=== PATIENT | female | born 1935 | race Caucasian/White ===

== ENCOUNTER 2016-06-01 11:42 | Inpatient (IN) | payer MEDICARE, BC ==
[~2016-06-01] VITALS: Ht 172.7 cm; Wt 71.3 kg
--- NOTE | ~2016-06-01 | ER ---
PATIENT'S NAME: ANTONINO DARLING [facility] AGE: 80 Y [address] ROOM: [address] [address] LOCATION: GPCU ADMIT DATE: 06/01/2016 ER/Outpatient Report DISCHARGE DATE: FAMILY PHYSICIAN: Elena Mchugh MD ATTENDING PHYSICIAN: XI CESAR CHIEF COMPLAINT: Nausea, vomiting, diarrhea. HISTORY OF PRESENT ILLNESS: The patient lives at home but has not been feeling well over the last few days. She was brought in by family for further evaluation and treatment of that issue. She states she got her usual immunizations this year, who has been having some pressure in her chest. The family notes that she has been under significant stress lately trying to care for her as he has been ill. The patient has had some diarrhea and vomiting over the last few days. She is generally weak. She rates her pain at 7/10. Nothing has really helped her. She denies any shortness of breath or extremity swelling. ALLERGIES: NO KNOWN MEDICAL ALLERGIES. MEDICATIONS: Please see list. PAST MEDICAL HISTORY: Includes hypertension, atrial fibrillation, arthritis. SURGERIES: Include cardiac stents, , and hysterectomy. SOCIAL HISTORY: The patient drinks alcohol occasionally. REVIEW OF SYSTEMS: All systems were reviewed and negative except as noted in the HPI. PHYSICAL EXAMINATION: VITAL SIGNS: Blood pressure is 183/84, pulse is 76, respiratory rate is 24, temperature is 101.2, SpO2 is 83% on room air. NEURO: The patient is awake and alert. GCS is 15. No focal deficits. No asymmetry on exam. HEENT: Normocephalic, atraumatic. The eyes are PERRL. The oropharynx is clear. NECK: Supple. Trachea is midline. PATIENT'S NAME: ANTONINO DARLING [facility] AGE: 80 Y [address] ROOM: [address] [address] LOCATION: GPCU ADMIT DATE: 06/01/2016 ER/Outpatient Report DISCHARGE DATE: FAMILY PHYSICIAN: Elena Mchugh MD ATTENDING PHYSICIAN: XI CESAR CHEST: Heart is regular rate and rhythm with no obvious murmurs. LUNGS: With coarse breath sounds bilateral, most prominent at the bases, left greater than right. The patient is tachypneic. ABDOMEN: Soft, nontender, and nondistended. No rebound or guarding. BACK: Nontender to palpation throughout. EXTREMITIES: Warm and well perfused. No peripheral edema. SKIN: Warm, dry, and intact. LABORATORY DATA AND X-RAYS: Chest x-ray, concerning for left lower lobe pneumonia. No clear cephalization of vessels. Blood cultures were obtained and are pending. EKG is sinus rhythm, rate of 75 with normal intervals and left axis. No significant changes other than upright T-waves in the lateral leads as compared to prior EKG from 02/12/2016. D-dimer is 2.96. CMS is notable for potassium of 3.1 with normal renal function and normal LFTs. Troponin I is below threshold. CRP is 2.15. ProBNP is 2006. WBC is 11.6, hemoglobin 13.8, platelets are 224. INR is 1.05. Urinalysis with no leukocytes, no nitrites, no bacteria. Procalcitonin 6.86. Chest CT/PE protocol notable for left lower lobe and probable right lower lobe pneumonia. No evidence of pulmonary edema or PE. IMPRESSION: 1. Severe community-acquired pneumonia with hypoxia. 2. Chest pain. 3. Sepsis secondary to pneumonia. 4. Pulmonary embolism. EMERGENCY DEPARTMENT COURSE: The patient was seen and evaluated as above. Differential includes acute coronary syndrome, PE, pneumothorax, pneumonia, and dissection. Labs were obtained including cultures, and the patient was febrile. Physical exam is more consistent with heart failure. The patient was markedly hypoxic and required 15 L non-rebreather to maintain adequate oxygen saturations. She would make it to 87% on 6 L by simple facemask. BiPAP was initiated for awhile with no real improvement subjectively or objectively. She was re- transitioned back down to the non-rebreather. She was most comfortable with that modality. She had no subjective shortness of breath associated with this. No evidence of cardiac ischemia. Empiric antibiotics were started with Rocephin and azithromycin as I can not find criteria for healthcare-associated pneumonia. IMPRESSION: The patient will be admitted to the PCU under the care of Dr. Cesar for further evaluation and treatment of her severe pneumonia with hypoxia. CRITICAL CARE: PATIENT'S NAME: ANTONINO DARLING [facility] AGE: 80 Y [address] ROOM: [id number] [place], [place] [address] [facility] ADMIT DATE: 06/01/2016 ER/Outpatient Report DISCHARGE DATE: FAMILY PHYSICIAN: Elean Mchugh MD ATTENDING PHYSICIAN: XI CESAR 35 minutes of critical care time was spent on this patient. Care is warranted for severe hypoxia. Critical care consisted of patient assessment, ordering and initiating testing for sepsis including pneumonia as well as evaluation of EKG and chest x-ray, ordering chest CT, initiating antibiotics and treating her hypoxia with BiPAP and high-flow oxygen. The patient remained otherwise stable and was admitted without further issues to the floor. MD JADEN ESPINOZA/caml /[id number] d: 06/02/16 0014 t: 06/03/16 2223, OUTPATIENT REPORT
--- NOTE | ~2016-06-01 | HP ---
PATIENT'S NAME: ANTONINO DARLING [facility] AGE: 80 Y [address] ROOM: [id number] [place], [place] [address] [facility] AD[facility] DATE: 06/01/2016 History & Physical DISCHARGE DATE: FAMILY PHYSICIAN: Elena Mchugh MD ATTENDING PHYSICIAN: XI CESAR DATE OF SERVICE: CHIEF COMPLAINT: Vomiting and diarrhea and cough. HISTORY OF PRESENT ILLNESS: This is a 80-year-old female who was brought into the ER by family, daughter, after the patient called her, reported that she was not feeling good and that she needed to go and see a doctor. History was obtained from the patient. She reported that last night that she had a few bars of caramel candy and thereafter she started coughing and she started throwing up. She reports that she threw up about 3 times, her symptoms began at around 10 p.m. last night after she ate the caramel candy bars. She also noted that around the same time that she developed some lower quadrant abdominal pain which she rated at 9/10, sharp, nonradiating pain, and she also notes that she had 2 episodes of soft stool, one last night and one this morning and none since she has been in the ER. However, family reports that sometimes in the first week of May that she had some flu-like symptoms with sore throat and also one of her sons who had the same symptoms, but they reported that since then she has been weak and tired and they felt probably maybe it was secondary to her arthritis. She denies chest pain, however, she notes pain on the right side of her rib. She denies urinary symptoms. She denies headache. She has chronic lower back pain. REVIEW OF SYSTEMS: The 13 elements of review of systems were asked and as documented in the HPI. The others are negative. PAST MEDICAL HISTORY: Includes hypertension; CAD, status post stent in 2011; rheumatoid arthritis; hypothyroidism; GERD; dyslipidemia; paroxysmal atrial fibrillation, on long- term anticoagulation; and also hypothyroidism. SOCIAL HISTORY: She is a former smoker, stopped several years ago. No use of alcohol. No use of drugs. FAMILY HISTORY: Mother with kidney cancer, father did not have any family history of heart [facility]: [facility]: 80 Y [address] ROOM: [facility] [place], [place] [address] [facility] AD[facility] DATE: 06/01/2016 History & Physical DISCHARGE DATE: FAMILY PHYSICIAN: Elena Mchugh MD ATTENDING PHYSICIAN: XI CESAR disease or cancer. PAST SURGICAL HISTORY: Includes cataract surgery, section, detached retinal repair, appendectomy, hysterectomy with bilateral salpingo-oophorectomy, and total knee replacement on the left. PHYSICAL EXAMINATION: VITAL SIGNS: In PCU, temperature 100.6, pulse 76, respiratory rate 38, blood pressure 175/74, and oxygen saturation 98% on 15 L of oxygen with nonrebreather. GENERAL: An elderly female who is a little bit weak and drowsy, in mild respiratory distress though she is on a nonrebreather; however, she is still tachypneic. She is alert, awake, and oriented x3. NEUROLOGICAL: Cranial nerves 2-12 are intact bilaterally. Sensory is intact bilaterally. Power is at least 4 in both upper and lower extremities. CARDIOVASCULAR SYSTEM: Normal S1, S2. Regular rate. CHEST: Bilateral basal rales, worse on the left. ABDOMEN: Soft, nondistended. No area of tenderness. No palpable organomegaly. Positive bowel sounds. EXTREMITIES: There is no joint swelling or erythema or tenderness. SKIN: No rashes or skin breakdown. LABORATORY DATA: Troponin less than 0.040. ProBNP 2006. WBC 11.6, H and H 13.8/41.7, and platelets 224. Sodium 140, creatinine 0.8, BUN 11, glucose 132, potassium 3.1, chloride 104, CO2 29, and calcium 8.2. Liver function tests within normal limits. INR 1.05. UA: Leukocytes negative, nitrite negative, wbc rare, bacteria negative. Procalcitonin 6.86. D-dimer 2.96. Absolute neutrophil count 10. CRP 2.15. Microbiology: Urine pending. Blood culture x2 sets, pending. Radiology: CTA per PE protocol: No PE; extensive consolidating left lower lobe pneumonia involving the entire lobe; small patchy infiltrate at the posterior right lung base, may also reflect pneumonia. ASSESSMENT AND PLAN: This is a 80-year-old female with acute hypoxic respiratory failure. 1. Acute hypoxic respiratory failure, present on admission. The patient was on BiPAP briefly, however, she is right now on nonrebreather at 15 L of oxygen. She is saturating 98%, but does still tachypneic. Given the extent of her bilateral lobe pneumonia, left greater than the right, she is at risk at developing ARDS. We will keep a close eye on this. We will get an ABG, and we will manage accordingly. Probably, she may need to be on CPAP or BiPAP depending on what the ABG results turns out to be. PATIENT'S NAME: ANTONINO DARLING [facility] AGE: 80 Y [address] ROOM: [id number] [place] [id number] [facility] AD[facility] DATE: 06/01/2016 History & Physical DISCHARGE DATE: FAMILY PHYSICIAN: Elena Mchugh MD ATTENDING PHYSICIAN: XI CESAR 2. Bilateral lobe basal pneumonia, worse on the left than the right, extensive, present on admission. We will manage the patient as per the pneumonia order set. She got Rocephin and azithromycin down in the ER. I will rather switch her to Zosyn and Levaquin given the extent of the pneumonia. We will also do urine for Legionella antigen and urine for streptococcal antigen. We will push for aggressive pulmonary toileting. The patient is at risk of developing ARDS. 3. Essential hypertension, is stable, controlled. We will continue the patient on her medication. 4. Sepsis, present on admission, secondary to bilateral lobe pneumonia. We will continue the patient on antibiotics. 5. Hypokalemia. We will replete, and we will check the patient's magnesium level as well. 6. Paroxysmal atrial fibrillation, rate controlled. Continue the patient on her medication. 7. Hypothyroidism, present on admission. We will continue the patient on her medication. 8. Gastroesophageal reflux disease, present on admission. We will put the patient on some Protonix now, as we are going to keep her n.p.o. until we will get Speech and Swallow evaluation in the morning. The line of management was explained to the patient and 2 daughters who are present at bedside and I did tell them that the patient is at risk of going into worsening respiratory failure which may need CPAP or BiPAP and if that fails, then she may require intubation and they expressed understanding about this. MD ARABELLA GARZA/hao /[id number] D: [id number] T: [id number] HISTORY & PHYSICAL
--- NOTE | ~2016-06-01 | DS ---
PATIENT'S NAME: ANTONINO DARLING [facility] AGE: 80 Y [address] ROOM: [address] [place], [place] [address] LOCATION: GPCU ADMIT DATE: 06/01/2016 Discharge Summary DISCHARGE DATE: 06/10/2016 FAMILY PHYSICIAN: Elena Mchugh MD ATTENDING PHYSICIAN: Armond Salcedo ADMITTING DIAGNOSES: 1. Acute hypoxic respiratory failure, improving. 2. Community-acquired pneumonia, improving. 3. Diastolic congestive heart failure, decompensated, currently improving. 4. Oral thrush, on nystatin. 5. Paroxysmal atrial fibrillation. 6. Rheumatoid arthritis. 7. Hypertension. 8. Physical deconditioning. HISTORY OF PRESENT ILLNESS: Please see admitting HPI. HOSPITAL COURSE: The patient was admitted to our hospital. Initial chest x- ray shows bilateral infiltrate. The patient was initially started on Rocephin and ceftriaxone in the emergency department. The patient's antibiotic was switched to Levaquin and Zosyn. Sputum cultures showed pansensitive MRSA. Blood cultures did not grow any bacteria. During her stay, the patient continued to have productive cough with mild tinged sputum. CT angiogram was done to evaluate. CTPA did not show any PE. The patient also was noted to be in decompensated heart failure, diastolic in nature. She was started on diuretics with adequate improvement of symptoms. The patient's antibiotic was changed to oral Levaquin and clindamycin. As such, sputum culture showed MSSA, pansensitive. The patient was continued on Levaquin. The patient's symptoms improved adequately during stay. The patient was also seen by Physical Therapy and Occupational Therapy. On the day of discharge, the patient was evaluated for oxygen need. The patient was noted to require 3 L of oxygen on rest and 4 L on ambulating. [id number] was done with the patient on oxygen need. I discussed about her oxygen need with the patient. The patient discharged in stable condition to follow up her with her primary care physician with Levaquin for five more days and oral nystatin for her oral thrush. The patient to have repeat chest x-ray in six weeks and repeat CBC on Thursday. CONDITION: Stable. DISPOSITION: Home with home health with PT, OT, and fdc. DISCHARGE MEDICATIONS: Please see MAR. PATIENT'S NAME: ANTONINO DARLING [facility] AGE: 80 Y [address] ROOM: [facility] [place] [address] [facility] AD[facility] DATE: 06/01/2016 Discharge Summary DISCHARGE DATE: 06/10/2016 FAMILY PHYSICIAN: Elena Mchugh MD ATTENDING PHYSICIAN: Armond aSlcedo FOLLOWUP: The patient to follow up with PCP with repeat CBC and chest x-ray in six weeks to show resolvement of pneumonia. Greater than 30 minutes was spent on discharge planning. MD JUANY BARNARD/hao /[id number] d: 06/11/16 0153 t: 06/15/16 1610, DISCHARGE SUMMARY
[~2016-06-01 11:42] MED LIST: ALTACE10 MG PO; ANTIVERT **IA12.5 MG PO; ASPIRIN EC81 MG PO; BETAPACE (GENER80 MG PO; CALCIUM 600 +1 EAC9 PO; CIPRO500 MG PO; COLACE100 MG PO; DELTASONE5 MG PO; FISH OIL 1,2001 EACH PO; LEVOTHROID (S125 MCG PO; LOPRESSOR25 MG PO; LOSARTAN-HCTZ1 EACH PO; MELOXICAM7.5 MG PO; MIRALAX17 GM PO; NORCO 10-325 T1 EACH PO; NORCO 5-325 MG1 TAB PO; PLAQUENIL200 MG PO; POTASSIUM99 M1 PO; VALIUM5 MG PO; VITAMIN C500 MG PO; VITAMIN D-40400 UNIT PO; VITAMIN E400 UNI2 PO; XARELTO10 MG PO; XARELTO20 MG PO; ZOCOR20 MG PO
[2016-06-01 12:18] LABS: HEMATOCRIT 41.7 % (33.0-46.0); HEMOGLOBIN 13.8 g/dL (10.0-15.0); MCHC 33.1 gm/dL (32.0-36.5); MCV 99.8 fl (83.0-98.0); MPV 9.8 fl (9.4-12.4); PLATELET COUNT 224 K/uL (150-450); RBC 4.18 M/uL (3.50-5.50); RDW-CV 12.4 % (11.9-14.6); WBC 11.6 K/uL (4.0-11.0)
[2016-06-01 12:26] LABS: INR - (THERAPEUTIC) 1.05 (0.92-1.07); PTT 29 SECONDS (25-32)
[2016-06-01 12:41] LABS: ALBUMIN 3.7 gm/dL (3.5-5.0); ALK PHOS 69 IU/L (33-138); ALT 32 IU/L (12-78); ANION GAP 10.1 (10.0-19.0); AST 31 IU/L (10-40); BLOOD UREA NITROGEN 11 mg/dL (6-24); CALCIUM 8.2 mg/dL (8.5-10.5); CHLORIDE 104 mMol/L (96-110); CO2 29 mMol/L (22-32); CREATININE 0.8 mg/dL (0.5-1.1); ESTIMATED GFR (MDRD EQUATION) > 60; POTASSIUM 3.1 mMol/L (3.7-5.1); SODIUM 140 mMol/L (135-145); TOTAL BILIRUBIN 1.5 mg/dL (0.0-1.5); TOTAL PROTEIN 6.3 g/dL (6.0-8.4)
[2016-06-01 13:01] LABS: BANDED NEUTROPHIL # 4.3 K/uL (0.0-0.1); BANDED NEUTROPHILS % 37 %; LYMPHOCYTE % 9 %; MONOCYTE # 0.5 K/uL (0.0-1.0); SEGMENTED NEUTROPHIL # 5.7 K/uL (1.8-7.8); SEGMENTED NEUTROPHIL % 49 %
[2016-06-01 13:14] LABS: BILIRUBIN URINE NEGATIVE (NEGATIVE); BLOOD URINE 50 /UL (NEGATIVE); COLOR URINE STRAW (YELLOW); GLUCOSE URINE NEGATIVE (NEGATIVE); KETONE URINE NEGATIVE (NEGATIVE); LEUKOCYTES URINE NEGATIVE /UL (NEGATIVE); NITRITE URINE NEGATIVE (NEGATIVE); PROTEIN URINE 15 mg/dL (NEGATIVE); SPEC GRAVITY URINE 1.005 (1.003-1.035); TURBIDITY URINE CLEAR (CLEAR); UROBILINOGEN URINE NORMAL (NORMAL)
[2016-06-01 13:23] LABS: BACTERIA URINE NEGATIVE (NEGATIVE); EPITHELIAL URINE RARE #/HPF (NEGATIVE); WBC URINE RARE #/HPF (NEGATIVE)
[2016-06-01 16:40] LABS: LACTATE 2.1 mEq/L (0.50-1.60); PCO2 38 mmHg (35-45); PO2 57 mmHg (80-90)
--- NOTE | 2016-06-01 19:44 | NUR ---
Significant Event: Alert & oriented but very drowsy. SBP 150-170, Temp 100.6, weaned to NC but resp rate 30-40 so started BiPAP. 2 post-tussive emesis of yellow-green with small amount of blood. Complaint of "chest pain" to left ribs and LUQ rates 3/10. NPO for now, speech eval Thursday. Giving IV Potassium & Magnesium & several Abx.
--- NOTE | 2016-06-02 04:51 | NUR ---
Significant Event: A&Ox3, VSS on BiPAP @ 50% FiO2. HTN at times, SBP: 160s-120s. Course lung sounds. Max temp 101.4 tympanic. extra tylenol dose given per MD order. Repositions self frequently in bed. INC of urine. UA needed, may need to straight cath. Sputum sample needed. Vomits when she tries to cough up sputum. Blood tinged frothy sputum/vomit. IV ABX into right AC areas in PIVs X2. [place] to [facility] [place], walker/GB. Loose BM, C-dif negative. Complains of pain in lower back. Ultram given X1 with some relief. Family at bedside and extremely active in care. Encouraged to let patient rest. Follow up: UA, sputum culture, contiue with plan of care.
[2016-06-02 05:07] LABS: HEMATOCRIT 35.8 % (33.0-46.0); HEMOGLOBIN 11.5 g/dL (10.0-15.0); MCH 32.2 pg (27.0-34.0); MCHC 32.1 gm/dL (32.0-36.5); MCV 100.3 fl (83.0-98.0); MPV 10.2 fl (9.4-12.4); PLATELET COUNT 180 K/uL (150-450); RBC 3.57 M/uL (3.50-5.50); RDW-CV 12.8 % (11.9-14.6); WBC 14.8 K/uL (4.0-11.0)
[2016-06-02 05:50] LABS: ABSOLUTE NEUTROPHIL CT (ANC) 12.7 K/uL (1.8-7.8); BANDED NEUTROPHIL # 4.7 K/uL (0.0-0.1); BANDED NEUTROPHILS % 32 %; LYMPHOCYTE % 7 %; SEGMENTED NEUTROPHIL % 54 %
[2016-06-02 12:50] LABS: CHLORIDE 109 mMol/L (96-110); CO2 25 mMol/L (22-32); CREATININE 0.8 mg/dL (0.5-1.1); ESTIMATED GFR (MDRD EQUATION) > 60; SODIUM 141 mMol/L (135-145)
[2016-06-02 12:55] LABS: BLOOD UREA NITROGEN 19 mg/dL (6-24); CALCIUM 7.4 mg/dL (8.5-10.5)
--- NOTE | 2016-06-02 19:40 | NUR ---
Significant Event: A/O x3, cooperative with cares. VSS, afebrile, SBPs 100-120s, HRs 60-80s, oxygen currently at 2 liters; was on bipap most of shift. 1 tab of [place] given x2, last at 1457, for c/o back pain; relief noted. Up with assist of 1 to BSC. Sputum specimen collected et sent to lab. Bedside swallow eval completed by speech therapy after bipap off. Follow up:
--- NOTE | 2016-06-03 03:53 | NUR ---
Significant Event:PT AAOX3.VERY PLEASANT WITH STAFF AND CARES. UP WITH 1 ASSIST GB CANE. DOES WELL WITH TRANSFERS. CONT OF BOWEL AND BLADDER.LUNG SOUND SLIGHTLY COARSE AT TIMES. CONTINUES TO HAVE HARSH PRODUCTIVE COUGH WITH BROWN BLOODY SPUTUM. 2L NC DURING EVENING. DID WEAR BIPAP AT 30%02 AT NIGHT. AFEBRILE. 2 IVS TO RIGHT AC. NACL RUNNING AT 100ML/HR. PT RESTED WELL DURING NIGHT. PRN NORCO AT HS FOR BACK PAIN. Follow up:
[2016-06-03 03:54] LABS: HEMATOCRIT 32.4 % (33.0-46.0); HEMOGLOBIN 10.4 g/dL (10.0-15.0); MCH 32.8 pg (27.0-34.0); MCHC 32.1 gm/dL (32.0-36.5); MCV 102.2 fl (83.0-98.0); MPV 10.5 fl (9.4-12.4); PLATELET COUNT 146 K/uL (150-450); RBC 3.17 M/uL (3.50-5.50); RDW-CV 12.8 % (11.9-14.6); WBC 12.2 K/uL (4.0-11.0)
[2016-06-03 04:09] LABS: BLOOD UREA NITROGEN 19 mg/dL (6-24); CALCIUM 7.7 mg/dL (8.5-10.5); CHLORIDE 106 mMol/L (96-110); CO2 24 mMol/L (22-32); CREATININE 0.6 mg/dL (0.5-1.1); ESTIMATED GFR (MDRD EQUATION) > 60; SODIUM 137 mMol/L (135-145)
[2016-06-03 05:16] LABS: ABSOLUTE NEUTROPHIL CT (ANC) 10.9 K/uL (1.8-7.8); BANDED NEUTROPHIL # 5.4 K/uL (0.0-0.1); BANDED NEUTROPHILS % 44 %; LYMPHOCYTE # 0.4 K/uL (0.8-4.0); LYMPHOCYTE % 3 %; MONOCYTE # 0.6 K/uL (0.0-1.0); SEGMENTED NEUTROPHIL # 5.5 K/uL (1.8-7.8); SEGMENTED NEUTROPHIL % 45 %
--- NOTE | 2016-06-03 14:08 | NUR ---
Introduced self and role of care management to pt along with her youngest daughter. Pt lives in [place] with her Allen who is in [facility] getting restorative therapy from numerous hospital admissions. She states she is feeling some better. I did discuss a little regarding dc plans and she is hoping for home and I did mention hhc or a skilled stay if she would qualify. She stated her has [facility] and that would be good on discharge and will see how she does the next few days. Pt did state she has 2 older sons that live with them but do work outside the home and the one gets back home around 3pm. She states he is a good cook and a granddaughter is also living with them and lately has been doing the laundry and cleaning. Pt states she does use a cane when up. They are hoping for home but explained I would check on her in the next day or 2 to make sure that is still the plan and will update Lucy with HHC.
--- NOTE | 2016-06-03 16:31 | NUR ---
I visited with the patient and her daughter about the hospitalist program and any discharge needs she will have. Their only concern was getting the discharge scripts a few hours befor she is dismissed. They would like to have them filled and smooth out any potential problems befor she gets home.
--- NOTE | 2016-06-03 16:47 | NUR ---
Significant Event: A/OX3, VSS ON ROOM AIR, KEEP SATS >90%. GAVE NORCO X2 LAST AT 1651 FOR COMPLAINTS OF GENERALIZED PAIN. PT. GETS UP 1 ASSIST TO BATHROOM, DID WALK IN HALLWAY TODAY WITH PHYSICAL THERAPY. FAMILY HERE TODAY. IV'S TO RIGHT AC & UPPER ARM ARE SALINE LOCKED. CONTINUES ON IV ABX'S. BIPAP D/C'D. LABS IN AM. POSSIBLE D/C TO HOME IN AM. UP IN CHAIR MOST OF THE DAY. PT. HAS A HARSH, MOIST COUGH WHICH HAS GOTTEN BETTER THROUGHOUT THE SHIFT, CONTINUES TO COUGH UP BLOOD TINGED SPUTUM AT TIMES. Follow up: CONTINUE WITH POC.
[2016-06-04 04:16] LABS: HEMATOCRIT 29.4 % (33.0-46.0); HEMOGLOBIN 9.7 g/dL (10.0-15.0); MCH 32.7 pg (27.0-34.0); MPV 10.9 fl (9.4-12.4); PLATELET COUNT 165 K/uL (150-450); RBC 2.97 M/uL (3.50-5.50); RDW-CV 12.3 % (11.9-14.6); WBC 13.1 K/uL (4.0-11.0)
[2016-06-04 04:29] LABS: ANION GAP 11.5 (10.0-19.0); BLOOD UREA NITROGEN 13 mg/dL (6-24); CALCIUM 7.9 mg/dL (8.5-10.5); CHLORIDE 110 mMol/L (96-110); CO2 25 mMol/L (22-32); CREATININE 0.5 mg/dL (0.5-1.1); ESTIMATED GFR (MDRD EQUATION) > 60; POTASSIUM 3.5 mMol/L (3.7-5.1); SODIUM 143 mMol/L (135-145)
[2016-06-04 05:20] LABS: ABSOLUTE NEUTROPHIL CT (ANC) 11.8 K/uL (1.8-7.8); BANDED NEUTROPHIL # 2.9 K/uL (0.0-0.1); BANDED NEUTROPHILS % 22 %; LYMPHOCYTE % 8 %; MONOCYTE # 0.3 K/uL (0.0-1.0); SEGMENTED NEUTROPHIL # 8.9 K/uL (1.8-7.8); SEGMENTED NEUTROPHIL % 68 %
--- NOTE | 2016-06-04 05:41 | NUR ---
Significant Event: PATIENT A/0 X 3, AMBULATES 1 ASSIST WITH WALKER/GAIT-BELT. LAST SPB HYPERTENSIVE AT 175, HR 60-80'S, ALL OTHER VSS ON 1L WHILE SLEEPING, AFEBRILE. STILL HAS PRODUCTIVE BLOOD-TINGED COUGH, LUNGS REMAIN SLIGHTLY COARSE/CRACKLES AT TIMES. 1 NORCO GIVEN AT 2145 WITH RELIEF NOTED. Follow up: POSSBILE DISCHARGE TODAY.
--- NOTE | 2016-06-04 17:46 | NUR ---
Significant Event: A/O X3. UP WITH 1 ASSIST, GB AND WALKER. PIV X2 TO RIGHT AC SL'D. C/O GENERALIZED PAIN, NORCO 1 TAB GIVEN X1. C/O INDIGESTION, TUMS 2 TABS GIVEN X1. UNABLE TO COMPLETELY WEAN O2, CURRENTLY ON 1L NC. LUNGS COARSE T/O. Follow up: NEED C.DIFF SAMPLE.
[2016-06-05 04:06] LABS: HEMATOCRIT 29.5 % (33.0-46.0); MCH 32.9 pg (27.0-34.0); MCHC 33.9 gm/dL (32.0-36.5); MPV 10.4 fl (9.4-12.4); RBC 3.04 M/uL (3.50-5.50); RDW-CV 12.5 % (11.9-14.6); WBC 13.3 K/uL (4.0-11.0)
[2016-06-05 04:08] LABS: PLATELET COUNT 208 K/uL (150-450)
--- NOTE | 2016-06-05 04:24 | NUR ---
Significant Event: Patient is alert and oriented x 3. Slightly forgetful. VSS on 2L of O2. HRs in the 60s. Hypertensive. SBPs in the 150s-170s. Max temp of 99.4. Up with 1 assist, walker, and gait belt. Lung sounds coarse/crackles throughout. Productive cough, blood-tinged sputum. BM x 1 this shift. Voiding well. Two right AC IVs, saline locked. [place] given for pain last at 233 and Tramadol given at 2109. Patient is pleasant and cooperative with cares. Follow up:
[2016-06-05 04:25] LABS: ANION GAP 10.9 (10.0-19.0); BLOOD UREA NITROGEN 11 mg/dL (6-24); CHLORIDE 106 mMol/L (96-110); CO2 26 mMol/L (22-32); CREATININE 0.5 mg/dL (0.5-1.1); ESTIMATED GFR (MDRD EQUATION) > 60; POTASSIUM 3.9 mMol/L (3.7-5.1); SODIUM 139 mMol/L (135-145)
[2016-06-05 05:15] LABS: ABSOLUTE NEUTROPHIL CT (ANC) 11.6 K/uL (1.8-7.8); BANDED NEUTROPHIL # 1.5 K/uL (0.0-0.1); BANDED NEUTROPHILS % 11 %; LYMPHOCYTE # 0.5 K/uL (0.8-4.0); LYMPHOCYTE % 4 %; MONOCYTE # 1.1 K/uL (0.0-1.0); SEGMENTED NEUTROPHIL # 10.1 K/uL (1.8-7.8); SEGMENTED NEUTROPHIL % 76 %
--- NOTE | 2016-06-05 16:45 | NUR ---
PT CONTINUES TO COUGH UP SMALL AMOUNTS OF BLOOD. UPPER LUNG SOUNDS BILAT SLIGHTLY COURSE, LOWER LUNG SOUNDS COURSE. PATIENT ACCIDENTALLY D/C RIGHT AC IV. OUTPUT OF 650.
--- NOTE | 2016-06-05 17:24 | NUR ---
I HAVE READ AND AGREE WITH CHARTING DONE BY Ashley ELLIS STUDENT NURSE.
--- NOTE | 2016-06-05 17:52 | NUR ---
Social visit with pt today and discussed dc plans. She hopes for home but she is not quite ready yet. I asked about skilled and if she needs to then she can but will see. I asked if I could inquire where her is and she stated yes and that I would try to come back when her daughter is here. I did call [facility] and they do not have any female beds and do feel bad because is there. WIll continue to follow.
--- NOTE | 2016-06-06 04:34 | NUR ---
a/o x3. forgetful at times. SBP 160-180's, temp 98-100.2. very poor IS user as well as flutter valve. needs lots of encouragement. o2 was at 3L at start of shift, bumped up to 6L for temporary time when she was mouth breathing but is back down to 4L at this time. Lasix given at shift change last noc with 1300 and a large incontinence. no bm. on oral abx Plan: d/c possibly thursday-will need trend ox on thursday noc.
[2016-06-06 06:02] LABS: ANION GAP 10.4 (10.0-19.0); BLOOD UREA NITROGEN 11 mg/dL (6-24); CALCIUM 8.1 mg/dL (8.5-10.5); CHLORIDE 101 mMol/L (96-110); CO2 29 mMol/L (22-32); CREATININE 0.5 mg/dL (0.5-1.1); ESTIMATED GFR (MDRD EQUATION) > 60; POTASSIUM 3.4 mMol/L (3.7-5.1); SODIUM 137 mMol/L (135-145)
--- NOTE | 2016-06-06 11:39 | NUR ---
A - PT SCREENED D/T LOS. FORGETFUL @ TIMES. DECREASED APPETITE. HT: 68" WT: 166# BMI: 24.9. LABS: K+ 3.4, GLU 121, CRP 2.15, WBC 13.3. MEDS: LEVAQUIN, PROTONIX, CLINDAMYCIN, PREDNISONE, SYNTHROID, FLORASTOR. DIET: REG. INTAKE: 25-75%. NEEDS: 8298-1096 KCAL (25-30 KCAL/KG), 60-75 G PRO (0.8-1 G/KG), 2250 ML FLUID (30 ML/KG) D - INADEQUATE NUTRIENT INTAKE AT TIMES R/T DECREASED APPETITE AEB INTAKE RECORD. I - GOAL FOR INTAKE 50-75% BY NEXT ASSESSMENT. WILL ADD ENSURE BID TO INC NUTRIENT INTAKE. M/E - WILL MONITOR INTAKE F/U IN 4-6 DAYS.
--- NOTE | 2016-06-06 13:29 | NUR ---
Talked with Nikki Marinelli who is assessing for [facility] HH, they can admit to HH when goes home, I put phone number to fax orders to [facility] on dc. Talked with Yecenia and let her know [facility] doesn't have a bed, she doesn't want to go anywhere else. Asked if she thinks she is strong enough to go home and she said her granddaughter is there and her family will help her at home. Is agreeable for [facility] to see her at home, likes the nurses that came to see her when they were following him before he went to [facility]. No family in room when I visited.
--- NOTE | 2016-06-06 16:02 | NUR ---
Patient is alert and oriented, but can be forgetful. HTN, on 3-5L, currently on 3L, order to wean off but keep sats >90%. SBA with walker and gaitbelt. Ambulated in the halls with PT. New IV started in the R) forearm. Will receive Lasix IV and potassium PO. No BMs this shift, one urine incontinent this AM. Will restart Xarelto tomorrow AM, was on hold for blood tinged sputum. Low grade temp at 99.1 for first assessment but has been afebrile for rest of shift. Tramadol was given x2 with last at 1537 for arthritis in her R) knee. Will need an other night trend ox before discharge, Paddy is aware.
[2016-06-07 03:42] LABS: HEMATOCRIT 29.2 % (33.0-46.0); HEMOGLOBIN 9.8 g/dL (10.0-15.0); MCH 32.8 pg (27.0-34.0); MCHC 33.6 gm/dL (32.0-36.5); MCV 97.7 fl (83.0-98.0); MPV 10.4 fl (9.4-12.4); PLATELET COUNT 238 K/uL (150-450); RBC 2.99 M/uL (3.50-5.50); RDW-CV 13.1 % (11.9-14.6); WBC 9.9 K/uL (4.0-11.0)
[2016-06-07 03:57] LABS: ALK PHOS 91 IU/L (33-138); ALT 73 IU/L (12-78); ANION GAP 8.9 (10.0-19.0); AST 47 IU/L (10-40); BLOOD UREA NITROGEN 16 mg/dL (6-24); CALCIUM 8.2 mg/dL (8.5-10.5); CHLORIDE 102 mMol/L (96-110); CO2 31 mMol/L (22-32); CREATININE 0.5 mg/dL (0.5-1.1); ESTIMATED GFR (MDRD EQUATION) > 60; POTASSIUM 3.9 mMol/L (3.7-5.1); SODIUM 138 mMol/L (135-145); TOTAL PROTEIN 5.2 g/dL (6.0-8.4)
[2016-06-07 03:58] LABS: TOTAL BILIRUBIN 0.6 mg/dL (0.0-1.5)
[2016-06-07 04:09] LABS: ABSOLUTE NEUTROPHIL CT (ANC) 6.5 K/uL (1.8-7.8); BANDED NEUTROPHIL # 0.6 K/uL (0.0-0.1); BANDED NEUTROPHILS % 6 %; LYMPHOCYTE # 1.7 K/uL (0.8-4.0); LYMPHOCYTE % 17 %; MONOCYTE # 1.4 K/uL (0.0-1.0); SEGMENTED NEUTROPHIL # 5.9 K/uL (1.8-7.8); SEGMENTED NEUTROPHIL % 60 %
--- NOTE | 2016-06-07 04:37 | NUR ---
Significant events: Pt A/Ox3. VSS. On 4-6L/NC. Up SBA to bathroom. Good UOP. [place] x1 for pain. Slept most of shift. Follow up: continue to wean O2.
--- NOTE | 2016-06-07 16:57 | NUR ---
Patient is alert and oriented, VSS on 4-4.5L of O2 today, currently at 4L. SBA with gait belt and walker when in the hallways. IV to R) forearm is saline locked. IV lasix BID with 1900ml out this shift. Regular diet. 1 moderate BM this shift and one to night shifts credit. She was incontinent of urine twice this shift after receiving lasix. Went down for a chest CT due to increase O2 needs. Will need to have an overnight trend ox before being discharged. Xarelto is still on hold due to her having a large bloody sputum this AM. Will continue to monitor O2 needs and urine output.
--- NOTE | 2016-06-08 04:24 | NUR ---
Significant event: Patient is A/O x 3. Is able to get around with minimal assist. On 4-5 Liters of oxygen. Requested 1 [place] for pain on her knees at bedtime with some relief noted. Will need ovenight trendox sometime before she goes home.
[2016-06-08 14:58] LABS: ANION GAP 10.5 (10.0-19.0); BLOOD UREA NITROGEN 13 mg/dL (6-24); CALCIUM 8.2 mg/dL (8.5-10.5); CHLORIDE 94 mMol/L (96-110); CO2 32 mMol/L (22-32); CREATININE 0.6 mg/dL (0.5-1.1); ESTIMATED GFR (MDRD EQUATION) > 60; POTASSIUM 3.5 mMol/L (3.7-5.1); SODIUM 133 mMol/L (135-145)
--- NOTE | 2016-06-08 15:32 | NUR ---
Significant Event: PT A&O x3, forgetful. VSS, O2 at 4L per nasal cannula. Pain well controlled with norco 1 tab last at 1350. IV patent to R)FA. PT ambulates with SBA. Minimal appetite. Nystatin swish and spit started today, and orajel to be applied before meals for sores on mouth. Follow up:
--- NOTE | 2016-06-09 04:12 | NUR ---
Significant event: A/O x 3. Up to bathroom frequently with 1 assist. [place] given about every 4 hours relief noted each time last dose given at 0230. On 4-5L O2 throughout the day. Order to restart the xarelto in am if no more bloody sputum.
[2016-06-09 06:22] LABS: BASOPHIL # 0.1 K/uL (0.0-0.2); BASOPHIL % 0.5 %; EOSINOPHIL # 0.2 K/uL (0.0-0.5); EOSINOPHIL % 0.9 %; HEMATOCRIT 29.9 % (33.0-46.0); IMMATURE GRANULOCYTE # 0.5 K/uL (0.0-0.3); IMMATURE GRANULOCYTE % 3.1 %; LYMPHOCYTE # 1.3 K/uL (0.8-4.0); LYMPHOCYTE % 7.9 %; MCH 32.5 pg (27.0-34.0); MCHC 33.4 gm/dL (32.0-36.5); MCV 97.1 fl (83.0-98.0); MONOCYTE # 1.3 K/uL (0.0-1.0); MONOCYTE % 7.5 %; MPV 9.6 fl (9.4-12.4); NEUTROPHIL # (ANC) 13.5 K/uL (1.8-7.8); NEUTROPHIL % 80.1 %; NRBC % 0 /100WBC (0-0.00); RBC 3.08 M/uL (3.50-5.50); RDW-CV 13.2 % (11.9-14.6)
[2016-06-09 06:23] LABS: PLATELET COUNT 336 K/uL (150-450); WBC 16.8 K/uL (4.0-11.0)
[2016-06-09 07:00] LABS: ALBUMIN 2.1 gm/dL (3.5-5.0); ALK PHOS 94 IU/L (33-138); ALT 56 IU/L (12-78); ANION GAP 11.1 (10.0-19.0); AST 35 IU/L (10-40); BLOOD UREA NITROGEN 18 mg/dL (6-24); CHLORIDE 96 mMol/L (96-110); CO2 32 mMol/L (22-32); CREATININE 0.8 mg/dL (0.5-1.1); ESTIMATED GFR (MDRD EQUATION) > 60; POTASSIUM 4.1 mMol/L (3.7-5.1); SODIUM 135 mMol/L (135-145); TOTAL BILIRUBIN 0.7 mg/dL (0.0-1.5); TOTAL PROTEIN 5.5 g/dL (6.0-8.4)
--- NOTE | 2016-06-09 15:48 | NUR ---
Significant Event: A/O. VSS weaned down to 3L/NC from 5L/NC. Pain controlled with norco, given x2. Up with stand by assist. Follow up: plan for dismissal tomorrow.
[2016-06-10 04:15] LABS: BASOPHIL # 0.1 K/uL (0.0-0.2); BASOPHIL % 0.4 %; EOSINOPHIL # 0.2 K/uL (0.0-0.5); EOSINOPHIL % 0.9 %; HEMATOCRIT 29.4 % (33.0-46.0); HEMOGLOBIN 9.7 g/dL (10.0-15.0); IMMATURE GRANULOCYTE # 0.4 K/uL (0.0-0.3); IMMATURE GRANULOCYTE % 2.5 %; LYMPHOCYTE # 1.2 K/uL (0.8-4.0); LYMPHOCYTE % 7.4 %; MCH 32.3 pg (27.0-34.0); MONOCYTE # 1.1 K/uL (0.0-1.0); MONOCYTE % 6.9 %; MPV 9.6 fl (9.4-12.4); NEUTROPHIL # (ANC) 13.6 K/uL (1.8-7.8); NEUTROPHIL % 81.9 %; NRBC % 0 /100WBC (0-0.00); PLATELET COUNT 351 K/uL (150-450)
[2016-06-10 04:19] LABS: WBC 16.6 K/uL (4.0-11.0)
--- NOTE | 2016-06-10 04:44 | NUR ---
A/O. HR 60s. SBP 110-140s. 3L NC. AFEBRILE. NORCO FOR PAINx2. D5 1/2 x1L FINISHED. 1A TO BATHROOM. NO BM. POSSIBLE DISMISSAL TODAY.
[2016-06-10] MEDS ORDERED: ANESTHETIC ORAL14 GM TOP (12:37)
[2016-06-10] MEDS ORDERED: LEVAQUIN 750 M750 MG PO (12:41)
[2016-06-10] MEDS ORDERED: NYSTATIN100000 UNI PO (12:42)
--- NOTE | 2016-06-10 12:50 | NUR ---
Social visit with pt and her daughter Ashly. I had a long discussion and plan is for her to go home. She does not want to go to a long-term at this time and famiily will be around to help out. I explained I will get [facility] set up for her as well and they agreed. I did call [facility] and faxed dc orders. WIll assist as needed.
--- NOTE | 2016-06-10 15:53 | NUR ---
DISCHARGE: A/O X3. UP WITH SBA. C/O GENERALIZED PAIN, PRN NORCO GIVEN X2 THIS SHIFT. RIGHT FA PIV REMOVED. O2 @ 3L [place]. [facility] BROUGHT PORTABLE OXYGEN FOR PATIENT. DISCHARGE INSTRUCTIONS REVIEWED. F/U APPOINTMENTS DISCUSSED AND NEED FOR F/U LABS AND CHEST X-RAY. NEW MEDICATIONS DISCUSSED. NO FURTHER QUESTIONS. PT'S DAUGHTER HERE TO TRANSPORT HER HOME. TAKEN TO [facility] BY WHEELCHAIR BY [facility]APARRO @ [id number]
== END 2016-06-10 14:40 | disposition home health service (06) | DRG 871 ==
LOC: GMED 11:42 → GPCU 14:12
PROVIDERS: Emergency Medicine; Family Medicine; ADMIT Hospitalist
DX: A41.9 Sepsis, unspecified organism (principal); I50.31 Acute diastolic (congestive) heart failure; J96.01 Acute respiratory failure with hypoxia; J18.9 Pneumonia, unspecified organism; I48.0 Paroxysmal atrial fibrillation; M06.9 Rheumatoid arthritis, unspecified; B37.0 Candidal stomatitis; E03.9 Hypothyroidism, unspecified; E87.6 Hypokalemia; I10 Essential (primary) hypertension; K21.9 Gastro-esophageal reflux disease without esophagitis; Z79.01 Long term (current) use of anticoagulants; Z87.891 Personal history of nicotine dependence; I25.10 Atherosclerotic heart disease of native coronary artery without angina pectoris
CPT/HCPCS: C9113; J0456; J0696; J1644; J1940; J1956; J3475; J3480; J7030; J7040; J7050; J7512; Q9967